=== PATIENT | male | born 1955 | race Caucasian/White ===

== ENCOUNTER 2020-09-25 06:26 | Day surgery (SDC) | payer MEDICAID, OTHER ==
[2020-09-25] MEDS ORDERED: Sodium Chloride 0.9% 1,000 ML IV SCH (07:00)
[2020-09-25] MEDS ORDERED: fentaNYL 100 MCG/2 ML SDV ONE (07:15)
[2020-09-25] MEDS ORDERED: Propofol 200 MG/20 ML SDV ONE (07:15)
[2020-09-25] MEDS ORDERED: Midazolam 1 MG/ML 2 ML SDV ONE (07:15)
--- NOTE | 2020-09-25 11:22 | OR ---
DATE OF PROCEDURE: 09/25/2020 SURGEON: Ron Coleman MD PROCEDURE: Colonoscopy. FINDINGS: Diverticulosis, mild. COMPLICATIONS: None. CONSULTING NURSE: None. ANESTHESIA: MAC. PREOPERATIVE DIAGNOSIS: Screening colonoscopy. POSTOPERATIVE DIAGNOSIS: Screening colonoscopy. RISKS: Risks, benefits, alternatives, and limitations including, but not limited to infection, bleeding, and perforation along with false positives and false negatives were explained to the patient who wished to proceed. PROCEDURE IN DETAIL: The patient was placed in left lateral decubitus position. Digital rectal exam was performed without abnormality. The scope was introduced and advanced atraumatically to the ileocecal valve. A photo was taken of this. Scope was brought back to the ascending, transverse, descending colon, and retroflexed. No evidence of old or new blood. No masses. No polyps. Diverticulosis would be described as mild without diverticulitis or bleeding. No abnormalities on retroflexion. The prep was acceptable, approximately 95% of the luminal surface could be seen. Greater than 8 minutes was spent removing the scope. Ron Coleman MD /[id number]
== END 2020-09-25 09:51 | disposition home or self-care (01) ==
LOC: JP.SDS 06:26
PROVIDERS: ATTEND Surgery
DX: Z12.11 Encounter for screening for malignant neoplasm of colon (principal); K57.30 Diverticulosis of large intestine without perforation or abscess without bleeding; E78.5 Hyperlipidemia, unspecified; I10 Essential (primary) hypertension; E66.9 Obesity, unspecified; Z68.31 Body mass index [BMI] 31.0-31.9, adult
CPT/HCPCS: 45378; J2250; J2704; J3010; J7030